=== PATIENT | female | born 1985 | race African-American/Black ===

== ENCOUNTER 2023-08-10 20:26 | Emergency (ER) | payer BC, SELFPAY ==
[2023-08-10 20:46] VITALS: BP 147/84; PULSE 113; RESP 18; TEMP 38.3; O2SAT 98; BMI 34.5
[2023-08-10 21:22] LABS: Appearance Urine Clear (Clear); Bilirubin Urine Negative (Negative); Blood Urine 3+ (Negative); Color Urine Yellow (Yellow); Glucose Urine Negative (Negative); Ketones Urine Negative (Negative); Leukocyte Esterase Urine Negative (Negative); Nitrite Urine Negative (Negative); Protein Urine Negative (Negative); Specific Gravity Urine 1.015 (1.000-1.030); Urobilinogen Urine 0.2 (0.2-1.0); pH Urine 5.5 (5.0-8.5)
[2023-08-10] MEDS: ACETAMINOPHEN 500 MG TABLET 1000 MG PO (21:23)
[2023-08-10 21:37] LABS: Squamous Epithelial Cell Urine Few (None-Few); WBC Urine 0-2 (0-5)
[2023-08-10 21:38] LABS: Amorphous Sediment Urine Few
--- NOTE | 2023-08-10 21:46 | ED.GENADULT ---
HPI - General Adult General Date Seen: 08/10/23 Chief complaint: Abdominal Pain Stated complaint: menstrual pain Time Seen by Provider: 08/10/23 20:40 Source: patient Mode of arrival: ambulatory Limitations: no limitations History of Present Illness HPI narrative: Patient is a 37-year-old female presenting for lower abdominal pain. She does most the pain is in the suprapubic region and she describes it as menstrual cramping. She does states she is on menstrual period right now. Denies ever having this much pain with it before. Denies any vaginal discharge or pain. She 1st noted yesterday and has continued to today. Today she has also had a fever of 102 at home. She still has a fever 101 in the emergency department. Denies chest pain, shortness of breath, nausea/vomiting, lightheadedness, dizziness. She states she has been drinking plenty of fluids but has not been eating much. Last bowel movement was this morning and was normal. Denies any dysuria or polyuria. Related Data Home Medications Medication Instructions Recorded Confirmed No Known Home Medications 08/10/23 08/10/23 Allergies Allergy/AdvReac Type Severity Reaction Status Date / Time No Known Drug Allergies Allergy Verified 08/10/23 20:49 Review of Systems Status of ROS: Reports: 10 or more systems reviewed and unremarkable except as noted in History and below Exam Narrative: Exam Narrative: Const: Well-nourished, Well-developed, in mild distress Eyes: PERRL, no conjunctival injection, and symmetrical lids HENT: Atraumatic external nose and ears. Moist mucous membranes. Neck: Symmetric, trachea midline, No thyromegaly. CVS: Tachycardia, No murmurs or gallops. Peripheral pulses 2+ and equal in all extremities RESP: Unlabored respiratory effort. Clear to auscultation bilaterally. GI: Mild suprapubic tenderness, Nondistended, No rebound or guarding. MSK:Extremities w/o deformity, Normal Active ROM Skin: Warm, Dry. No rashes or lesions. Neuro: Normal Muscle tone, No focal neurological deficits. Psych: Awake, Alert, & Oriented x3. Appropriate mood and affect. Const: Vital Signs, click to edit/add: Vital Signs - 24 hr 08/10/23 20:46 Temperature 101.0 F H Pulse Rate [Pulse Oximeter] 113 H Respiratory Rate 18 Blood Pressure [Ri ght Upper Arm] 147/84 H Pulse Oximetry 98 Oxygen Delivery Me thod Room Air Course Vital Signs Vital signs: Initial Vital Signs Temperature 101.0 F H 08/10/23 20:46 Temperature Source Temporal Artery Scan 08/10/23 20:46 Pulse Rate 113 H 08/10/23 20:46 Respiratory Rate 18 08/10/23 20:46 Blood Pressure 147/84 H 08/10/23 20:46 Blood Pressure Mean 105 08/10/23 20:46 Blood Pressure Position Sitting 08/10/23 20:46 Pulse Oximetry 98 08/10/23 20:46 Oxygen Delivery Method Room Air 08/10/23 20:46 Vital Signs Temperature 101.0 F H 08/10/23 20:46 Pulse Rate 113 H 08/10/23 20:46 Respiratory Rate 18 08/10/23 20:46 Blood Pressure 147/84 H 08/10/23 20:46 Pulse Oximetry 98 08/10/23 20:46 Oxygen Delivery Method Room Air 08/10/23 20:46 Temperature 101.0 F H 08/10/23 20:46 Pulse Rate 113 H 08/10/23 20:46 Respiratory Rate 18 08/10/23 20:46 Blood Pressure 147/84 H 08/10/23 20:46 Pulse Oximetry 98 08/10/23 20:46 Oxygen Delivery Method Room Air 08/10/23 20:46 Medications Administered Medications: Discontinued Medications Generic Name Dose Route Start Last Admin Trade Name Freq PRN Reason Stop Dose Admin Acetaminophen 1,000 mg 08/10/23 22:06 08/10/23 21:23 Acetaminophen 500 Mg Tablet PO 08/10/23 22:07 1,000 mg ONCE ONE Administration Lactated Ringer's 1,000 mls @ 1,000 mls/hr 08/10/23 21:34 08/10/23 22:55 Lactated Ringers 1000 Ml IV 08/10/23 22:33 Infused .Q1H ONE Infusion Ketorolac Tromethamine 15 mg 08/10/23 21:34 08/10/23 21:54 Ketorolac 15 Mg/Ml Inj IVP 08/10/23 21:35 15 mg ONCE ONE Administration Ondansetron HCl 4 mg 08/10/23 21:34 08/10/23 21:54 Ondansetron 2 Mg/Ml Inj IVP 08/10/23 21:35 4 mg ONCE ONE Administration Medical Decision Making MDM Narrative Medical decision making narrative: Patient is a 37-year-old female presents to emergency department for suprapubic pain. Symptoms started yesterday and she is currently on her menstrual. She also has a fever and is tachycardic. She meets SIRS criteria. CBC, CMP, urinalysis, COVID/flu/RSV, troponin, lactate, EKG all ordered. She is given Toradol for pain and Zofran for nausea. She was given a L of lactated Ringer's Symptoms could be related to uterus issues, cystitis, colitis. Patient is feeling better after the medication. We did ordered CBC and CMP and CBC showed no concerning abnormalities. Lactate within normal limits and she is not appear to be septic CMP returned with a sodium of 126. This is abnormal for her but she did test positive for COVID-19. Hyponatremia is a Dr. An abnormality commonly seen with COVID-19. Since the patient is otherwise asymptomatic other than the abdominal pain a think we can discharge her home. I do not believe we need any imaging at this time since we know she has COVID and is likely the source of her symptoms. I did speak to her and told her she is to follow up with primary care provider tomorrow about repeat lab work. I informed she needs to make sure his hyponatremia is not getting worse and she states she understands. Lab Data Labs: Lab Results 08/10/23 08/10/23 08/10/23 Range/Units 20:45 21:34 21:57 WBC 5.23 (4.50-11.00) K/uL RBC 4.34 (4.00-5.20) m/uL Hgb 13.0 (12.0-16.0) gm/dL Hct 38.2 (33.0-51.0) % MCV 88 (80-100) fL MCH 30 (26-34) pg MCHC 34 (32-36) gm/dL RDW Coeff of [place]o 12.7 (11.5-15.5) % Plt Count 222 (140-440) K/uL Neut % (Auto) 76.1 H (42.0-72.0) % Lymph % (Auto) 8.8 L (20-44) % [place] % (Auto) 13.2 H (0.0-11.0) % Eos % (Auto) 1.1 (0.0-7.0) % Baso % (Auto) 0.6 (0.0-3.0) % Neut # (Auto) 4.00 (1.7-7.0) K/uL Lymph # (Auto) 0.50 L (0.90-2.90) K/uL [place] # (Auto) 0.70 (0.00-0.90) K/UL Eos # (Auto) 0.06 (0.00-0.50) K/uL Baso # (Auto) 0.03 (0.00-0.30) K/uL Abs Immat Gran (auto) 0.01 (0.00-0.30) K/uL Imm/Tot Granulo (auto) 0.2 % Sodium 126 L (135-149) mmol/L Potassium 3.6 (3.6-5.1) mmol/L Chloride 103 (96-114) mmol/L Carbon Dioxide 21 (20-32) mmol/L Anion Gap 2 L (7-15) mEq/L BUN 11 (5-24) mg/dL Creatinine 0.8 (0.5-1.5) mg/dL Estimated Creat Clear 95.45 Estimated GFR 98 ml/min Glucose 111 (60-115) mg/dL Lactate 1.0 (0.5-1.9) mmol/L Calcium 8.7 (8.4-10.6) mg/dL Total Bilirubin 0.2 (0.1-1.5) mg/dL AST 29 (12-35) U/L ALT 19 (4-35) U/L Alkaline Phosphatase 73 (40-150) U/L Troponin I < 0.01 L (0.01-0.04) ng/mL Total Protein 7.0 (6.0-8.3) g/dL Albumin 4.0 (3.3-5.0) g/dL Lipase 31 (23-300) U/L Urine Color Yellow (Yellow) Urine Appearance Clear (Clear) Urine pH 5.5 (5.0-8.5) Ur Specific [place] 1.015 (1.000-1.030) Urine Protein Negative (Negative) Urine Glucose (UA) Negative (Negative) Urine Ketones Negative (Negative) Urine Blood 3+ A (Negative) Urine Nitrite Negative (Negative) Urine Bilirubin Negative (Negative) Urine Urobilinogen 0.2 (0.2-1.0) Ur Leukocyte Esterase Negative (Negative) Urine RBC 10-25 A (0-2) Urine WBC 0-2 (0-5) Urine WBC Clumps None (None) Ur Squamous Epith Cells Few (None-Few) Amorphous Sediment Few A (None) Urine Bacteria None (None) SARS-CoV-2 (PCR) POSITIVE SARS-CoV-2 A (Negative) Influenza Type A (PCR) Negative PCR FLU A (Negative) Influenza Type B (PCR) Negative PCR FLU B (Negative) RSV (PCR) Negative PCR RSV (Negative) ECG Data Attestation: I personally reviewed and interpreted this ECG as follows: Prior ECG tracings: not available for review Interpretation: Normal sinus rhythm with rate 98 beats per minute, first-degree AV block, normal axis, no ST or we T-wave abnormalities Discharge Plan Discharge Clinical Impression: COVID, Acute hyponatremia Patient Disposition: Home, Self-Care Condition: Improved Instructions: Hyponatremia (ED), COVID-19 (Coronavirus Disease 2019) (ED) Additional Instructions: Take Tylenol and ibuprofen for fever. You also have a low sodium in your blood. I recommend following up with the primary care provider tomorrow about repeat blood work. This time your blood sodium levels are passable but if they get worse that can cause severe issues. Prescriptions: No Action No Known Home Medications Follow Up/Referrals: Nicolasa Jang PA-C [Primary Care Provider] - Stand Alone Forms: [employer] Info Instructions
[2023-08-10] MEDS: ONDANSETRON 2 MG/ML inj 4 MG IVP (21:54)
[2023-08-10] MEDS: LACTATED RINGERS 1000 ML 1,000 ML IV (21:54)
[2023-08-10] MEDS: KETOROLAC 15 MG/ML inj IVP (21:54)
[2023-08-10 22:07] LABS: Basophils Absolute Auto 0.03 K/uL (0.00-0.30); Basophils Percent Auto 0.6 % (0.0-3.0); Eosinophils Absolute Auto 0.06 K/uL (0.00-0.50); Eosinophils Percent Auto 1.1 % (0.0-7.0); Hematocrit 38.2 % (33.0-51.0); Immature Granulocytes Abs Auto 0.01 K/uL (0.00-0.30); Immature Granulocytes Pct Auto 0.2 %; Lymphocytes Percent Auto 8.8 % (20-44); Mean Corpuscular HGB Conc 34 gm/dL (32-36); Mean Corpuscular Hemoglobin 30 pg (26-34); Mean Corpuscular Volume 88 fL (80-100); Monocytes Percent Auto 13.2 % (0.0-11.0); Neutrophils Percent Auto 76.1 % (42.0-72.0); Platelet Count* 222 K/uL (140-440); RDW Coefficient of Variation % 12.7 % (11.5-15.5); Red Blood Count 4.34 m/uL (4.00-5.20); White Blood Count* 5.23 K/uL (4.50-11.00)
[2023-08-10 22:21] LABS: Chloride* 103 mmol/L (96-114); Slide Review Reflex No
[2023-08-10 22:22] LABS: Sodium* 126 mmol/L (135-149)
[2023-08-10 22:23] LABS: Potassium* 3.6 mmol/L (3.6-5.1)
[2023-08-10 22:24] LABS: Creatinine* 0.8 mg/dL (0.5-1.5); Est. Creatinine Clearance* 95.45; Estimated Glomerular Filt Rate 98 ml/min
[2023-08-10 22:25] LABS: Alanine Aminotransferase* 19 U/L (4-35); Alkaline Phosphatase* 73 U/L (40-150); Anion Gap 2 mEq/L (7-15); Aspartate Amino Transferase* 29 U/L (12-35); Bilirubin Total* 0.2 mg/dL (0.1-1.5); Blood Urea Nitrogen* 11 mg/dL (5-24); Carbon Dioxide* 21 mmol/L (20-32); Glucose* 111 mg/dL (60-115); Lipase* 31 U/L (23-300)
[2023-08-10 22:26] LABS: Calcium* 8.7 mg/dL (8.4-10.6)
[2023-08-10 22:43] LABS: PCR FLU A Negative PCR FLU A (Negative); PCR FLU B Negative PCR FLU B (Negative); PCR RSV Negative PCR RSV (Negative)
[2023-08-10 22:46] LABS: SARS PCR* POSITIVE SARS-CoV-2 (Negative)
[2023-08-10 22:49] LABS: Troponin I* < 0.01 ng/mL (0.01-0.04)
[2023-08-10 22:50] VITALS: BP 133/81; PULSE 89; RESP 18; TEMP 37.3; O2SAT 98
== END 2023-08-10 23:18 | disposition home or self-care (01) ==
PROVIDERS: Emergency Provider Student in an Organized Health Care Education/Training Program; PCP Physician Assistant
DX: U07.1 COVID-19 (principal); E87.1 Hypo-osmolality and hyponatremia
CPT/HCPCS: 36415; 80053; 81001; 83605; 83690; 84484; 85025; 87040; 87631; 93005; 96361; 96374; 96375; 99283; 99284; 99285; A9270; J1885; J2405; J7120

== ENCOUNTER 2023-09-04 14:06 | Outpatient (RCR) | payer OTHER, BC, SELFPAY | END 2024-01-02 23:59 | disposition home or self-care (01) | PROVIDERS: PCP Physician Assistant; Visit Provider Physician Assistant | DX: M54.41 Lumbago with sciatica, right side (principal); Z51.89 Encounter for other specified aftercare | CPT/HCPCS: 97110; 97162 ==

== ENCOUNTER 2023-12-25 20:36 | Emergency (ER) | payer OTHER, SELFPAY ==
[2023-12-25 20:43] VITALS: BP 144/72; PULSE 110; RESP 16; TEMP 36.2; O2SAT 98; BMI 30.4
--- NOTE | 2023-12-25 20:56 | ED_ITS ---
HPI - General Adult General Date Seen: 12/25/23 Chief complaint: Laceration/Wound Stated complaint: fell, lip lac Time Seen by Provider: 12/25/23 20:55 History of Present Illness HPI narrative: This is a very pleasant generally healthy 38-year-old female who is not up-to-date on tetanus presenting to the ER today for abrasions and lacerations to her right side of her upper lip. She was taking out the trash in the recycling at home this evening when she slipped because the ground was wet from the rain. She is not exactly sure what she hit her lip against, either a piece of a can or possibly some of the edge of her house. She suffered a scrape to her upper lip. She has 2 linear lacerations on the far lateral and of her right upper lip across the vermilion border. One is about 5 mm in length and 1 is above 3 males. She also has a couple of very superficial linear scrape baltazar on her skin portion of her upper lip. Nose is uninjured. No mucosal lacerations. No dental injury. No jaw pain. She was not knocked out. No neck pain. No other injuries. Related Data Home Medications Medication Instructions Recorded Confirmed No Known Home Medications 08/10/23 08/10/23 Allergies Allergy/AdvReac Type Severity Reaction Status Date / Time No Known Drug Allergies Allergy Verified 09/15/23 08:53 [facility] Social History (System 09/15/23 @ 08:53 by María Maloney) Smoking Status: Never smoker How often do you have a drink containing alcohol: never AUDIT-C Alcohol total score: 0 Non-prescribed substance use: denies use Exam Narrative: Exam Narrative: Constitutional: Appears well-developed and well-nourished. Alert. Conversant. Non toxic. HENT: Head: No depressed skull fracture, Raccoon Eyes, Pretty's sign, or hemotympanum. Face normal. TMs normal Nose: Nose normal. Mouth/Throat: She has very superficial linear scrape chris/linear abrasions on the skin portion of her upper lip. There are 2 deeper wounds on the upper lip. They are both on the far lateral and of the upper lip. One of them is about 3 mm in length and gapes about 1 meal. A larger 1 is about 5 mm in length. Both of these are at/crossing the vermilion border. No visible foreign body. There is little bit of bruising on the lip but no mucosal laceration oral through and through lacerations. Oral mucosa is clear and moist. no trismus. Tongue normal. Pharynx normal. Tonsils symmetric. No tonsillar enlargement, erythema, or exudate. No trismus. No dental injury. Eyes: Conjunctivae normal. EOM normal. Pupils equal, round, and reactive to light. No scleral icterus. Neck: Normal range of motion. Neck supple. No tracheal deviation present. No midline tenderness. Cardiovascular: Normal rate, regular rhythm. No gallop. No friction rub. No murmur heard. Pulmonary/Chest: Effort normal. No stridor. No respiratory distress. Musculoskeletal: RUE: Normal range of motion. No tenderness. No deformity LUE: Normal range of motion. No tenderness. No deformity RLE: Normal range of motion. No edema. No tenderness. No deformity LLE: Normal range of motion. No edema. No tenderness. No deformity Neurological: Mental status normal. Attention normal. Alert and oriented x3. GCS 15. Memory normal. Speech fluent. Cognition normal. Cranial Nerves intact II-XII except I did not formally test gag or visual acuity. EOMI. Palate elevates symmetrically and tongue protrudes in the midline. Strength: 5/5 trapezius on the right and left 5/5 deltoid on the right and left 5/5 biceps on the right and left 5/5 triceps on the right and left 5/5 private duty aide on the right and left 5/5 thumb opposition on the right and le ft 5/5 finger abduction on the right and le ft 5/5 hip flexors (L3) on the right and le ft 5/5 quadriceps (L4) on the right and lef t 5/5 tibialis anterior on the right and l eft 5/5 EHL (L5) on the right and left 5/5 gastrocnemius (S1) on the right and left 5/5 hamstring on the right and left Sensation intact to light touch in both upper extremities (C4-T1) Sensation intact to light touch in Both lower extremities (L4-S1). Finger to nose and coordination normal. Gait normal. Skin: Skin is warm and dry. No rash noted. No pallor. Normal capillary refill. Psychiatric: Normal mood. Normal affect. Const: Vital Signs, click to edit/add: Vital Signs - 24 hr 12/25/23 20:43 Temperature 97.1 F L Pulse Rate [Pulse Oximeter] 110 H Respiratory Rate 16 Blood Pressure [Ri ght Upper Arm] 144/72 H Pulse Oximetry 98 Oxygen Delivery Me thod Room Air Course Vital Signs Vital signs: Initial Vital Signs Temperature 97.1 F L 12/25/23 20:43 Temperature Source Temporal Artery Scan 12/25/23 20:43 Pulse Rate 110 H 12/25/23 20:43 Respiratory Rate 16 12/25/23 20:43 Blood Pressure 144/72 H 12/25/23 20:43 Blood Pressure Mean 96 12/25/23 20:43 Blood Pressure Position Sitting 12/25/23 20:43 Pulse Oximetry 98 12/25/23 20:43 Oxygen Delivery Method Room Air 12/25/23 20:43 Vital Signs Temperature 97.1 F L 12/25/23 20:43 Pulse Rate 110 H 12/25/23 20:43 Respiratory Rate 16 12/25/23 20:43 Blood Pressure 144/72 H 12/25/23 20:43 Pulse Oximetry 98 12/25/23 20:43 Oxygen Delivery Method Room Air 12/25/23 20:43 Temperature 97.1 F L 12/25/23 20:43 Pulse Rate 110 H 12/25/23 20:43 Respiratory Rate 16 12/25/23 20:43 Blood Pressure 144/72 H 12/25/23 20:43 Pulse Oximetry 98 12/25/23 20:43 Oxygen Delivery Method Room Air 12/25/23 20:43 Medications Administered Medications: Discontinued Medications Generic Name Dose Route Start Last Admin Trade Name Freq PRN Reason Stop Dose Admin Diphtheria/Tetanus/Acell Pertussis 0.5 ml 12/25/23 21:08 12/25/23 21:40 Tetanus/Diphth/Pertussis 0.5 Ml Syringe IM 12/25/23 21:09 0.5 ml .ONCE ONE Administration Lidocaine/Epinephrine 20 ml 12/25/23 21:08 12/25/23 21:40 Lidocaine 1%-Epi 1:100,000 20 Ml INFILTRATI 12/25/23 21:09 20 ml ONCE ONE Administration Medical Decision Making MDM Narrative Medical decision making narrative: Findings and exam are consistent with an right upper lip lacerations . We discussed options for wound healing including primary care with sutures (my recommendation because these cross the vermilion border and likely would leave cosmetically important scars even other small) versus healing by secondary intention. Patient elected primary repair and wounds were repaired as noted above. Both of these cross the vermilion border. Neither of them appear to be through and through. There is no evidence at this time to suggest any associated fracture or foreign body. There is no evidence to suggest intracranial injury and patient is neurologically in tact. The patient is to follow up for suture removal as instructed in 5 days. Indications to seek urgent reevaluation and signs of infection (including but not limited to increasing pain, redness, swelling, fevers, and drainage) were reviewed. Tetanus is updated today. This is a clean and noncontaminated wound in which prophylactic antibiotics are not indicated. An understanding of the discharge instructions and need for follow up were verbally confirmed. Discharge Plan Discharge Clinical Impression: Laceration of lip Patient Disposition: Home, Self-Care Condition: Stable Instructions: Facial Laceration (ED) Additional Instructions: Please follow-up with the urgent care or the ER in 5 days to have the stitches removed. To take care of your wound, in the next few days stick to a clear liquid and soft food diet. Wash gently with warm water if the wounds become soiled. Apply antibiotic ointment or petroleum jelly over the lacerations to keep them moist. Watch for signs of infection such as swelling, redness, pus draining from your wounds. If you have any concerns, do not wait until Monday, come back to the ER right away to be rechecked. Prescriptions: No Action No Known Home Medications Follow Up/Referrals: Nicolasa Jang PA-C [Primary Care Provider] - Stand Alone Forms: [facility] Info Instructions Procedures Laceration Right Upper lip laceration (3mm and 5 mm both crossing the vermilion border): Pre procedure diagnosis: Upper lip laceration Verification/time out: correct patient, correct site and correct procedure Site: lip (Right upper lip. Two lacerations crossing the vermilion border adjacent to each other. Not through and through. One is 3 mm. The 2nd is 5 mm and C shaped.) Side (If applicable): right Description: linear Depth: simple, single layer Local Anesthetic: lidocaine 1% and with epi Amount of anesthesia used (mL): 1 Pre-repair: wound explored Skin layer closed with: nylon Size (cm): 6-0 Number of sutures: 4 Technique: simple, interrupted (One suture placed into the 3 mm laceration. Three sutures placed into the C-shaped 5 mm laceration.)
[2023-12-25] MEDS: TETANUS/DIPHTH/PERTUSSIS 0.5 ML SYRINGE IM (21:40)
== END 2023-12-25 21:45 | disposition home or self-care (01) ==
LOC: ED 21:44
PROVIDERS: Emergency Provider Emergency Medicine; PCP Physician Assistant
DX: S01.511A Laceration without foreign body of lip, initial encounter (principal); W22.8XXA Striking against or struck by other objects, initial encounter
CPT/HCPCS: 12001; 90471; 90715; 99282; 99283

== ENCOUNTER 2023-12-30 07:52 | Emergency (ER) | payer SELFPAY ==
[2023-12-30 07:55] VITALS: BP 146/88; PULSE 87; RESP 18; TEMP 36.1; O2SAT 99; BMI 27.4
--- NOTE | 2023-12-30 08:18 | ED.GENADULT ---
HPI - General Adult General Date Seen: 12/30/23 Chief complaint: Unspecified Complaint, Adult Stated complaint: Needs stitches removed Time Seen by Provider: 12/30/23 08:05 Source: patient Mode of arrival: ambulatory Limitations: no limitations History of Present Illness HPI narrative: Patient presents for suture removal of stitches that were placed on her upper lip 5 days ago. Healed well, no complaints. Related Data Home Medications Medication Instructions Recorded Confirmed No Known Home Medications 08/10/23 08/10/23 Allergies Allergy/AdvReac Type Severity Reaction Status Date / Time No Known Drug Allergies Allergy Verified 09/15/23 08:53 PFSH PFS Social History (System 09/15/23 @ 08:53 by María Maloney) Smoking Status: Never smoker How often do you have a drink containing alcohol: never AUDIT-C Alcohol total score: 0 Non-prescribed substance use: denies use Exam Narrative: Exam Narrative: Vital signs reviewed. Four small sutures right upper lip. Well healed, no evidence of infection. Const: Vital Signs, click to edit/add: Vital Signs - 24 hr 12/30/23 07:55 Temperature 97.0 F L Pulse Rate [Right Pulse Oximeter] 87 Respiratory Rate 18 Blood Pressure [Ri ght Upper Arm] 146/88 H Pulse Oximetry 99 Oxygen Delivery Me thod Room Air Documenting provider has reviewed patient's vital signs: yes Course Course ED Course: Four simple interrupted sutures were removed without complication. Recommended sunscreen daily for the next 6 months to minimize pigmentation. Vital Signs Vital signs: Initial Vital Signs Temperature 97.0 F L 12/30/23 07:55 Temperature Source Temporal Artery Scan 12/30/23 07:55 Pulse Rate 87 12/30/23 07:55 Respiratory Rate 18 12/30/23 07:55 Blood Pressure 146/88 H 12/30/23 07:55 Blood Pressure Mean 107 H 12/30/23 07:55 Blood Pressure Position Sitting 12/30/23 07:55 Pulse Oximetry 99 12/30/23 07:55 Oxygen Delivery Method Room Air 12/30/23 07:55 Vital Signs Temperature 97.0 F L 12/30/23 07:55 Pulse Rate 87 12/30/23 07:55 Respiratory Rate 18 12/30/23 07:55 Blood Pressure 146/88 H 12/30/23 07:55 Pulse Oximetry 99 12/30/23 07:55 Oxygen Delivery Method Room Air 12/30/23 07:55 Temperature 97.0 F L 12/30/23 07:55 Pulse Rate 87 12/30/23 07:55 Respiratory Rate 18 12/30/23 07:55 Blood Pressure 146/88 H 12/30/23 07:55 Pulse Oximetry 99 12/30/23 07:55 Oxygen Delivery Method Room Air 12/30/23 07:55 Discharge Plan Discharge Clinical Impression: Visit for suture removal Patient Disposition: Home, Self-Care Condition: Stable Instructions: Stitches Removal (ED) Prescriptions: No Action No Known Home Medications Follow Up/Referrals: Nicolasa Jang PA-C [Primary Care Provider] - Stand Alone Forms: [employer] Info Instructions
== END 2023-12-30 08:26 | disposition home or self-care (01) ==
LOC: ED 08:23
PROVIDERS: Emergency Provider Emergency Medicine; PCP Physician Assistant
DX: Z48.02 Encounter for removal of sutures (principal)
CPT/HCPCS: 99281; 99282